=== PATIENT | female | born 1990 | race Caucasian/White ===

== ENCOUNTER 2016-09-01 16:48 | Outpatient (CLI) | payer OTHER | END 2016-09-01 21:55 | disposition home or self-care (01) | DX: O09.33 Supervision of pregnancy with insufficient antenatal care, third trimester (principal); O99.89 Other specified diseases and conditions complicating pregnancy, childbirth and the puerperium; R10.2 Pelvic and perineal pain; O99.213 Obesity complicating pregnancy, third trimester; E66.9 Obesity, unspecified; Z68.34 Body mass index [BMI] 34.0-34.9, adult ==

== ENCOUNTER 2016-09-13 13:44 | Outpatient (CLI) | payer OTHER | END 2016-09-13 17:30 | disposition home or self-care (01) | DX: O47.1 False labor at or after 37 completed weeks of gestation (principal); Z3A.38 38 weeks gestation of pregnancy ==

== ENCOUNTER 2016-09-17 05:27 | Outpatient (CLI) | payer OTHER ==
[2016-09-17 07:20] VITALS: BP 112/56
--- NOTE | 2016-09-17 07:47 | HISTORY & PHYSICAL EXAMINATION ---
DATE OF ADMISSION: 09/17/2016 DIAGNOSES 1. Gross ruptured membranes. 2. Late care. 3. Dating by late ultrasound at 38 weeks 5 days. HISTORY OF PRESENT ILLNESS: The patient is a 26-year-old 3, para 2-0-0-3, woman who reports rupture of membranes with clear fluid at 0515 hours this morning. She was confused as to where to report for hospitalization and presented at [facility]. She has been seen in the past here at [facility] once by myself, reference dictation from 09/[address] Patel on one occasion. Additionally, she had seen Dr. Miles at the [facility]. She has no fevers, chills , or symptoms of PIH. Her dating is based on ultrasound from 09/01. PAST MEDICAL HISTORY: No chronic disease history, hospitalizations, or surgery. ALLERGIES: NO KNOWN DRUG ALLERGIES. MEDICATIONS: vitamins. PHYSICAL EXAMINATION GENERAL: Well groomed, pleasant, obese. ABDOMEN: No marked tenderness. VAGINA: Gross ruptured membranes (SCOOTER Aguero). CERVIX: 1 cm thick, 60%, -2 station (SCOOTER Aguero). EXTERNAL MONITOR: Baseline 140 with moderate variability, no significant decelerations. Contractions every 3-4 minutes, palpate mild. ASSESSMENT: The patient is a woman who has had late care and uncertain dating due to achieving on Depo-Provera. By late ultrasound, she is 38 + weeks. She is in the latent phase of labor with ruptured membranes. Currently , there are no concerns about well being. She mistakenly came to [facility] for delivery without prior authorization through her [facility] insurance coverage. When she realized the financial consequences, she strongly desired discharge to access the [facility] facility. PLAN: I explained the risks and benefits of transfer of care, inclusive of degradation of state and poor outcome during transport. The main advantage was primarily financial and convenience. The patient does not want to proceed by an ambulance because of associated charges. Travel by POV seems reasonable and they understand the need to drive directly to the [facility] birthing center. Though the tracing indicates no problems at the current time, there is no guarantee that things could degrade during transportation and that possibility was made clear. AMA form was completed. JOB #: [id number] EXT JOB #:[id number] ILA
== END 2016-09-17 06:30 | disposition left against medical advice (07) ==
LOC: WFO 05:27 → OB 05:28 → WFO 06:30
PROVIDERS: ATTEND Obstetrics & Gynecology
DX: O09.33 Supervision of pregnancy with insufficient antenatal care, third trimester (principal); Z3A.38 38 weeks gestation of pregnancy; Z53.29 Procedure and treatment not carried out because of patient's decision for other reasons; O99.213 Obesity complicating pregnancy, third trimester; E66.9 Obesity, unspecified
CPT/HCPCS: 99213

== ENCOUNTER 2017-02-08 09:06 | Emergency (ER) | payer OTHER ==
[2017-02-08] MEDS ORDERED: DEXAMETHASONE 10 MG/ML VIAL PO STA (11:14)
[2017-02-08] MEDS ORDERED: DEXAMETHASONE 10 MG/ML VIAL ONE (11:20)
[2017-02-08 11:41] LABS: RAPID STREP SCREEN REAGENT QC YELLOW (YELLOW)
--- NOTE | 2017-02-08 11:46 | ED Physician Documentation ---
PD HPI HEENT - Stated complaint Stated Complaint: FEVER - Chief complaint Chief Complaint: Heent - History obtained from History obtained from: Patient - History of Present Illness Timing - onset: How many days ago (2) Timing - duration: Days (2) Timing - details: Gradual onset, Still present Location: Left ear, Sinuses, Throat Improves: Medication Worsens: Swalllowing Associated symptoms: Congestion, Rhinorrhea, Headache, Cough Similar symptoms before: Diagnosis (OM) Recently seen: Not recently seen Review of Systems Constitutional: denies: Fever Eyes: denies: Decreased vision Ears: reports: Ear pain Nose: reports: Rhinorrhea / runny nose, Congestion Throat: reports: Sore throat Cardiac: denies: Chest pain / pressure, Palpitations Respiratory: reports: Dyspnea, Cough GI: denies: Vomiting PD PAST MEDICAL HISTORY - Past Medical History Past Medical History: No - Past Surgical History Past Surgical History: No - Present Medications Home Medications: Ambulatory Orders Medication Instructions Recorded Confirmed Albuterol Sulf [Ventolin Hfa 1 - 2 puffs INH Q4HR PRN #1 inhaler 02/08/17 Inhaler] Azithromycin [Zithromax] 250 mg PO DAILY #6 tablet 02/08/17 - Allergies Allergies/Adverse Reactions: Allergies Allergy/AdvReac Type Severity Reaction Status Date / Time No Known Drug Allergies Allergy Verified 03/27/16 10:11 - Social History Does the pt smoke?: No Smoking Status: Never smoker Does the pt drink ETOH?: No PD ED PE NORMAL - Vitals Vital signs reviewed: Yes (normal ) - General General: No acute distress, Well developed/nourished - HEENT HEENT: Atraumatic, PERRL, EOMI, Other (Left TM is inflamed. ) - Neck Neck: Supple, no meningeal sign, No bony TTP, Other (shoddy adenopathy bilaterally) - Cardiac Cardiac: RRR, No murmur - Respiratory Respiratory: No respiratory distress, Other (diminished breath sounds with faint wheeze) - Abdomen Abdomen: Soft, Non tender - Back Back: No CVA TTP, No spinal TTP - Derm Derm: Normal color, Warm and dry, No rash - Extremities Extremities: No deformity, No edema - Neuro Neuro: No motor deficit, No sensory deficit - Psych Psych: Normal mood, Normal affect Results - Vitals Vitals: Vital Signs - 24 hr 10/09/17 09:23 Temperature 36.4 C L Heart Rate 94 Respiratory 16 Rate O2 Saturation 100 Oxygen O2 Source Room air - Labs Labs: Laboratory Tests 02/08/17 11:13 Group A Strep Rapid Negative PD MEDICAL DECISION MAKING - ED course Complexity details: considered differential, d/w patient ED course: 26 y/o female with OM is given decadron Departure - Departure Disposition: 01 Home, Self Care Clinical Impression: Otitis media Qualifiers: Otitis media type: suppurative Chronicity: acute Laterality: left Recurrence: not specified as recurrent Spontaneous tympanic membrane rupture: without spontaneous rupture Qualified Code(s): H66.002 - Acute suppurative otitis media without spontaneous rupture of ear drum, left ear Condition: Stable Instructions: ED Otitis Media Acute Adult Follow-Up: LETY Schofield [Provider Group] Prescriptions: Albuterol Sulf [Ventolin Hfa Inhaler] 1 - 2 puffs INH Q4HR PRN #1 inhaler PRN Reason: Shortness Of Air/Wheezing Azithromycin [Zithromax] 250 mg PO DAILY #6 tablet Forms: Activity restrictions Discharge Date/Time: 02/08/17 11:50
== END 2017-02-08 11:50 | disposition home or self-care (01) ==
LOC: ED 09:06
DX: H66.002 Acute suppurative otitis media without spontaneous rupture of ear drum, left ear (principal)
CPT/HCPCS: 87070; 87430; 99283

== ENCOUNTER 2018-08-30 12:04 | Emergency (ER) | payer OTHER ==
[2018-08-30 12:35] VITALS: BP 152/85
[2018-08-30] MEDS ORDERED: KETOROLAC 30 MG/ML VIAL IM STA (12:37)
[2018-08-30] MEDS ORDERED: METHOCARBAMOL 500 MG TABLET PO STA (12:37)
[2018-08-30] MEDS ORDERED: TRIAMCINOLONE 40 MG/ML VIAL IM STA (12:37)
[2018-08-30] MEDS ORDERED: oxyCODONE 5 MG TABLET PO STA (12:37)
[2018-08-30] MEDS ORDERED: BUPIVACAINE 0.5%-EPI 1:200000 PF 10 ML VIAL SUBQ STA (12:37)
--- NOTE | 2018-08-30 12:58 | ED Physician Documentation ---
PD HPI BACK INJURY - Stated complaint Stated Complaint: BACK PAIN - History obtained from History obtained from: Patient - History of Present Illness Location: Left, Lower Type of injury: Twist (She had jumped up onto a counter at home pushing up with her hands and twisting her buttocks onto the counter in order to reach a higher cabinet. As she did it she felt onset of pain both with the twisting and with the landing on the counter. She is continue with pain in the left lower back with some shooting of pain to the left buttock and lateral thigh. She did not have any numbness or weakness in the lower leg. She denies any bladder incontinence. She has had some pains in the low back there episodically for a couple of days at a time but nothing of this duration or severity.) Where injury occurred: Home Timing - onset: How many weeks ago (2) Timing - duration: Weeks (2) Timing - details: Abrupt onset, Still present, Waxing and waning Quality: Pain, Spasm Improved by: Rest, Meds (tried ibuprofen and icy-hot, massage and stretching without consistent improvement.) Worsened by: Moving, Palpating Associated symptoms: No: Fever, Weakness, Numbness, Incontinent of urine Contributing factors: No: Work related Similar symptoms before: No diagnosis (similar back pains with lifting or such in the past, but usually just for a day or two.) Recently seen: Not recently seen Review of Systems Constitutional: denies: Fever, Myalgias GI: denies: Abdominal Pain : denies: Incontinent Skin: denies: Rash, Lesions Neurologic: denies: Focal weakness, Numbness PD PAST MEDICAL HISTORY - Past Medical History Cardiovascular: None Respiratory: None Neuro: None Endocrine/Autoimmune: None - Past Surgical History Past Surgical History: No - Present Medications Home Medications: Ambulatory Orders Medication Instructions Recorded Confirmed Albuterol Sulf [Ventolin Hfa 1 - 2 puffs INH Q4HR PRN #1 inhaler 02/08/17 Inhaler] Azithromycin [Zithromax] 250 mg PO DAILY #6 tablet 02/08/17 Dexamethasone [Decadron] 4 mg PO DAILY #5 tablet 08/30/18 Methocarbamol [Robaxin] 500 mg PO Q6H PRN #30 tablet 08/30/18 Oxycodone HCl/Acetaminophen 1 - 2 each PO Q6H PRN #20 tablet 08/30/18 [Percocet 5-325 mg Tablet] - Allergies Allergies/Adverse Reactions: Allergies Allergy/AdvReac Type Severity Reaction Status Date / Time No Known Drug Allergies Allergy Verified 08/30/18 12:35 - Social History Does the pt smoke?: No Smoking Status: Never smoker Does the pt drink ETOH?: No PD ED PE NORMAL - Vitals Vital signs reviewed: Yes - General General: Alert and oriented X 3, No acute distress, Well developed/nourished - Cardiac Cardiac: RRR, No murmur - Respiratory Respiratory: Clear bilaterally - Abdomen Abdomen: Soft, Non tender - Back Back: No CVA TTP, No spinal TTP (tender left lower lumbar area at upper SI and iliac crest. No rash nor sores. Has a focal tender area in which I did a trigger injection iwth Marcaine and Kenalog. ) - Derm Derm: Normal color, Warm and dry, No rash - Neuro Neuro: Alert and oriented X 3, No motor deficit, No sensory deficit Results - Vitals Vitals: Vital Signs - 24 hr 08/30/18 12:27 Temperature 36.6 C Heart Rate 73 Respiratory 18 Rate Blood Pressure 152/85 H O2 Saturation 98 Oxygen O2 Source Room air PD MEDICAL DECISION MAKING - ED course Complexity details: considered differential, d/w patient Departure - Departure Disposition: 01 Home, Self Care Clinical Impression: Acute lumbar myofascial strain Qualifiers: Encounter type: initial encounter Qualified Code(s): S39.012A - Strain of muscle, fascia and tendon of lower back, initial encounter Condition: Stable Record reviewed to determine appropriate education?: Yes Instructions: ED Sprain Strain Lumbar Prescriptions: Dexamethasone [Decadron] 4 mg PO DAILY #5 tablet Methocarbamol [Robaxin] 500 mg PO Q6H PRN #30 tablet PRN Reason: Spasms Oxycodone HCl/Acetaminophen [Percocet 5-325 mg Tablet] 1 - 2 each PO Q6H PRN #20 tablet PRN Reason: pain Comments: Continue local massage and heat and stretching. Continue the ibuprofen 2-3 times a day. Add Decadron steroid for added anti-inflammatory effect and Robaxin for muscle spasms and stiffness. To that add Tylenol or oxycodone as needed for pain. Recheck if still not improved over the next several days or so.
== END 2018-08-30 13:04 | disposition home or self-care (01) ==
LOC: ED 12:04
DX: S39.012A Strain of muscle, fascia and tendon of lower back, initial encounter (principal); X50.1XXA Overexertion from prolonged static or awkward postures, initial encounter; Y93.89 Activity, other specified; Y92.009 Unspecified place in unspecified non-institutional (private) residence as the place of occurrence of the external cause
CPT/HCPCS: 20552; 96372; 99283; A9270

== ENCOUNTER 2019-04-19 10:55 | Inpatient (IN) | payer OTHER ==
[2019-04-19] MEDS ORDERED: AMPICILLIN 2 GM in SODIUM CHLORIDE 0.9% MINIBAG 100 ML IV ONE (11:27)
[2019-04-19] MEDS ORDERED: SODIUM CHLORIDE FLUSH 0.9% 10 ML SYRINGE IVP PRN (11:27)
[2019-04-19] MEDS: LACTATED RINGERS 1,000 ML IV SCH ×2 (12:00→18:41)
[2019-04-19 12:27] LABS: BASOPHILS % (AUTO) 0.3 %; EOSINOPHILS % (AUTO) 0.1 %; HGB - HEMOGLOBIN 9.5 g/dL (12.0-16.0); LYMPHOCYTES # (AUTO) 1.1 10^3/uL (1.5-3.5); LYMPHOCYTES % (AUTO) 10.7 %; MEAN CORPUSCULAR HEMOGLOBIN 26.9 pg (27.0-31.0); MEAN CORPUSCULAR HGB CONC 31.4 g/dL (32.0-36.0); MEAN CORPUSCULAR VOLUME 85.8 fL (81.0-99.0); MEAN PLATELET VOLUME 11.5 fL (7.9-10.8); MONOCYTES # (AUTO) 0.4 10^3/uL (0.0-1.0); MONOCYTES % (AUTO) 3.5 %; NEUTROPHILS # (AUTO) 8.7 10^3/uL (1.5-6.6); NEUTROPHILS % (AUTO) 85.1 %; PLT - PLATELET COUNT 205 10^3/uL (130-450); RED BLOOD COUNT 3.53 10^6/uL (4.20-5.40); RED CELL DISTRIBUTION WIDTH 13.5 % (12.0-15.0); WHITE BLOOD COUNT 10.2 x10^3/uL (4.8-10.8)
--- NOTE | 2019-04-19 12:48 | HISTORY & PHYSICAL EXAMINATION ---
Admit History - Visit Reason Visit Reason: Contractions - : 4 Parity: 4 Premature: 0 Ectopic: 0 : 0 Care: positive: [facility] Risk/History: positive: None Complications This : positive: None Smoking Status: Never smoker - Mother's Labs Mother's Blood Type: positive: B Mother's RH: positive: Positive GBS: positive: Group B Strep Positive Rubella Status: positive: Immune Meds/Allgy - Home Medications Home Medications: Ambulatory Orders Medication Instructions Recorded Confirmed Albuterol Sulf [Ventolin Hfa 1 - 2 puffs INH Q4HR PRN #1 inhaler 02/08/17 Inhaler] Azithromycin [Zithromax] 250 mg PO DAILY #6 tablet 02/08/17 Methocarbamol [Robaxin] 500 mg PO Q6H PRN #30 tablet 08/30/18 Oxycodone HCl/Acetaminophen 1 - 2 each PO Q6H PRN #20 tablet 08/30/18 [Percocet 5-325 mg Tablet] dexAMETHasone [Decadron] 4 mg PO DAILY #5 tablet 08/30/18 - Allergies Allergies/Adverse Reactions: Allergies Allergy/AdvReac Type Severity Reaction Status Date / Time No Known Drug Allergies Allergy Verified 08/30/18 12:35 Review of Systems - Constitutional Constitutional: denies: Fatigue, Fever, Chills, Malaise - Eyes Eyes: denies: Blurred vision, Spots in vision, Dipolpia - Cardiovascular Cariovascular: denies: Irregular heart rate, Palpitations, Chest pain, Edema - Respiratory Respiratory: denies: SOB at rest - Gastrointestinal Gastrointestinal: denies: Abdominal pain, Change in bowel habits - Integumentary Integumentary: denies: Rash, Pruritis - Neurological Neurological: denies: Headache Physical - Abdominal Exam Vital Signs: Temp Pulse Resp BP Pulse Ox 36.7 C 70 18 126/60 100 04/19/19 11:12 04/19/19 11:12 04/19/19 11:12 04/19/19 11:12 04/19/19 11:12 Contraction Frequency (min/apart): 3-5 Contraction Intensity: positive: Strong Uterine Resting Tone: positive: Soft - Monitoring Heart Rate Baseline: 135 Strip Review: positive: Category I - Presentation Presentation: positive: Vertex - Vaginal Exam Membranes: positive: Membranes intact Dilation (in cm): 5 Effacement (%): 90 Station: positive: -1 - Speculum Exam Speculum Exam Performed: positive: No Plan for Labor - Plan For Labor I expect patient to be DC'd or transferred within 96 hours.: Yes Plan for Labor: HPI: Ama is a 28yo @ 40.0wks gestation by 18.0wk ultrasound. She presented to [facility] 04/19/2019 @ 1118 with complaints of contractions. She reports contractions began to increase in frequency and intensity early this morning around 0300. She reports losing her mucus plug this morning which was pink tinged with red streaks of blood but otherwise denies vaginal bleeding. She denies leakage of fluid and reports +FM. She has been a patient of [facility] since 37wks gestation at which time she transferred care from [facility] where she did receive regular care through the duration of her , although she was late to seek care at 18wks gestation. Her has been complicated only by anemia for which she has been taking FeSO4 consistently. She is also noted to be positive for Group B strep. She was admitted to [facility] for management. 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 3VC. Posterior, fundal placenta, no previa. Mildy decreased HC/AC ratio. Correlate clinically to exclude maternal diabetes 12/06/2018 f/u WNL Physical Exam: Normocephalic, atraumatic Heart RRR w/o M/G/R Lungs CTAB Abdomen gravid, soft, nontender EFW 3400g SVE 5/90/-1, vertex. Membranes intact with bulging BOW Contractions palpate strong every 3-5 minutes with soft resting tone FHR baseline 135, moderate variability, + accels, no decels Bilateral LE's no edema Mood is good although very uncomfortable supportive at the bedside Assessment: 28yo @ 40.0wks gestation by 18.0wk U/S Active labor GBS positive Plan: Admit for expectant management Initiate Ampicillin for GBS prophylaxis per protocol Anesthesia operations scheduler notified of pt request for epidural for pain management. Plan AROM with second dose of antibiotics. Anticipate . Pt, partner, and labor RN verbalized understanding and agree with above plan. They deny further questions or concerns at this time.
--- NOTE | 2019-04-19 12:51 | ANESTHESIA ---
Pre-Anesthesia VS, & Labs - Diagnosis active labor - Procedure vaginal delivery Vital Signs: Temp Pulse Resp BP Pulse Ox 36.7 C 70 18 126/60 100 04/19/19 11:12 04/19/19 11:12 04/19/19 11:12 04/19/19 11:12 04/19/19 11:12 Height 5 ft 3 in Weight (kg) 101.605 kg Body Mass Index 30.9 - NPO Last Fluid Intake: clear liquids - Is Patient ?: Yes - Lab Results Current Lab Results: Laboratory Tests 04/19/19 12:10: WBC 10.2, RBC 3.53 L, Hgb 9.5 L, Hct 30.3 L, MCV 85.8, MCH 26.9 L, MCHC 31.4 L, RDW 13.5, Plt Count 205, MPV 11.5 H, Neut # (Auto) 8.7 H, Lymph # (Auto) 1.1 L, [place] # (Auto) 0.4, Eos # (Auto) 0.0, Baso # (Auto) 0.0, Absolute Nucleated RBC 0.00, Nucleated RBC % 0.0 Fish Bones: 04/19/19 12:10 Home Medications and Allergies Active Medications Ampicillin Sodium 1 gm/ Sodium (Chloride) 100 mls @ 200 mls/hr IV Q4H [facility] Lactated Ringer's (Lr) 1,000 mls @ 150 mls/hr IV .Q6H40M [facility] Last Admin: 04/19/19 12:00 Dose: 150 mls/hr Sodium Chloride (Normal Saline Flush 0.9%) 10 ml IVP PRN PRN PRN Reason: NEEDED PER PROVIDER ORDERS Sodium Chloride (Normal Saline Flush 0.9%) 10 ml IVP 0100,0900,1700 [facility] Allergies/Adverse Reactions: Allergies Allergy/AdvReac Type Severity Reaction Status Date / Time No Known Drug Allergies Allergy Verified 08/30/18 12:35 Anes History & Medical History - Anesthetic History Family history of Anesthesia Complications: Denies Family history of Malignant Hyperthermia: Denies - Medical History Cardiovascular: reports: None Pulmonary: reports: None Gastrointestinal: reports: GERD (during ) Urinary: reports: None Neuro: reports: None Musculoskeletal: reports: None Endocrine/Autoimmune: reports: None Blood Disorders: reports: None Skin: reports: None Smoking Status: Never smoker Psychosocial: reports: No issues indicated - Obstetrical History : 4 Parity: 4 Events: positive: None Complications: positive: None Exam General: Alert, Oriented x3, Cooperative, No acute distress Dental: WNL Mouth Openin Fingerbreadth Neck Mobility: Normal Mallampati classification: I Thyromental Distance: greater than 6 cm Plan Anesthesia Type: Epidural Consent for Procedure(s) Verified and Reviewed: Yes Code Status: Attempt Resuscitation ASA classification: 2-Mild systemic disease Is this case an emergency?: No
[2019-04-19] MEDS ORDERED: NALOXONE 0.4 MG/ML VIAL IVP PRN (12:52)
[2019-04-19] MEDS ORDERED: ONDANSETRON 4 MG/2 ML VIAL IVP PRN (12:52)
[2019-04-19] MEDS ORDERED: NALBUPHINE 10 MG/ML AMP IVP PRN (12:52)
[2019-04-19] MEDS ORDERED: ROPIVACAINE 0.2% 200 MG/100 ML BAG EP PRN (12:52)
[2019-04-19] MEDS ORDERED: ePHEDrine 50 MG/ML VIAL IVP PRN (12:52)
[2019-04-19] MEDS ORDERED: LACTATED RINGERS 500 ML IV ONE (12:52)
[2019-04-19] MEDS ORDERED: OXYTOCIN/DEXTROSE 5 % 30 UNIT/500 ML BAG IV ONE (15:49)
[2019-04-19] MEDS ORDERED: LIDOCAINE-MPF 1% 30 ML VIAL ONE (15:49)
[2019-04-19] MEDS ORDERED: miSOPROStoL 200 MCG TABLET ONE (15:49)
[2019-04-19] MEDS: OXYTOCIN/DEXTROSE 5 % 30 UNIT/500 ML BAG IV PRN ×2 (16:10→17:38)
[2019-04-19] MEDS ORDERED: HYDROCORTISONE 1% CREAM 28 GM TUBE PR PRN (16:19)
[2019-04-19] MEDS ORDERED: WITCH HAZEL/GLYCERIN 1 PAD TOP PRN (16:19)
--- NOTE | 2019-04-19 16:29 | DELIVERY NOTE ---
Delivery Note - Labor Labor: positive: Spontaneous - Delivery Method Delivery Method: positive: Spontaneous vaginal delivery - Presentation Presentation: positive: Vertex, RUI - right occiput anterior - Nuchal Cord Nuchal Cord: positive: None - Amniotic Fluid Description Amniotic Fluid Description: positive: Clear - Episiotomy Type Episiotomy Type: positive: None - Laceration Laceration: positive: None - Delivery Outcome Delivery Outcome: positive: Livebirth - Nettie : positive: Placed in direct skin contact with mother, Bulb syringe, Stimulated, Warmed, [place] used Nettie sex: positive: Male - Cord Cord: positive: 3 vessels - Placenta Placenta: positive: Intact, Spontaneous - Estimated Blood Loss Estimated Blood Loss (in cc): 250 - Post Delivery Events Post Delivery Events: positive: No post delivery events - Delivery Comments (Free Text/Narrative) Delivery Comments (Free Text/Narrative): Labor: This 28yo @ 40.0wks gestation by 18wk ultrasound presented to [facility] on 04/19/2019 at approximately 1118. Upon arrival cervical was 5/90/-1, vertex with intact membranes and bulging BOW. FHR pattern demonstrated Category I throughout labor.She was noted to be GBS positive and received 2g Ampicillin x 1 for GBS prophylaxis and delivery occurred 4 hours after initiation of medication for adequate prophylaxis. Epidural placed per maternal request. SROM occurred at 1521 and was noted to be a moderate amount of clear fluid. Patient progressed to c/c/+2 at 1540 with onset of active pushing at 1605. : She progressed to spontaneously deliver a viable male on 04/19/2019 at 1609. No nuchal cord. Apgars were 7/8 at 1 and 5 min respectively. The umbilical cord was allowed to stop pulsating at which time it was doubly clamped by CNM and cut by FOB. Pitocin administered via IV for hemostasis. Cord blood was obtained. Placenta delivered spontaneously and intact at 1613. 3VC. EBL 250mL. Fourth stage: Uterine fundus firm and there is no excessive bleeding. The perineum, vagina, and cervix were inspected and found to be intact. Skin to skin contact initiated and family bonding well. Both mother and baby were left in st able condition.
[2019-04-19] MEDS: ACETAMINOPHEN 500 MG TABLET PO SCH (17:35)
[2019-04-19] MEDS: SODIUM CHLORIDE FLUSH 0.9% 10 ML SYRINGE IVP SCH (17:56)
[2019-04-19] MEDS: IBUPROFEN 800 MG TABLET PO SCH ×2 (18:12→23:53)
[2019-04-19] MEDS: AMPICILLIN 1 GM in SODIUM CHLORIDE 0.9% MINIBAG 100 ML IV SCH (18:53)
[2019-04-19] MEDS: DOCUSATE SODIUM 100 MG CAPSULE PO SCH (20:23)
[2019-04-19] MEDS ORDERED: HYDROcod/ACETAM 5/325 MG TABLET PO ONE (21:12)
[2019-04-20] MEDS: ACETAMINOPHEN 500 MG TABLET PO SCH ×2 (03:45→12:01)
[2019-04-20] MEDS: IBUPROFEN 800 MG TABLET PO SCH ×2 (06:21→12:29)
--- NOTE | 2019-04-20 07:54 | Discharge Plan ---
Discharge Plan Problem Reviewed?: Yes Disposition: Home, Self Care Condition: Good Diet: Regular Activity Restrictions: No Restrictions Shower Restrictions: No Driving Restrictions: No Weight Bearing: Full Weight No Smoking: If you smoke, Please STOP! Call for help. Follow-up with: Jes Perez CNM, ARNP [Provider Admit Priv/Credential] -
[2019-04-20] MEDS: SODIUM CHLORIDE FLUSH 0.9% 10 ML SYRINGE IVP SCH ×2 (07:56→12:02)
[2019-04-20] MEDS: LACTATED RINGERS 1,000 ML IV SCH ×3 (07:56→15:32)
--- NOTE | 2019-04-20 07:58 | PROVIDER PROGRESS NOTE ---
Subjective - Subjective Subjective: FINAL PROGRESS NOTE: S: Bonding well with baby. was going well but she has now been pumping and syringe feeding as baby has been gagging frequently and not very excited about latching well. She denies pain since early yesterday evening when she received [place] 5/325 x 1 dose. Pain has been well controlled since that time with ibuprofen and tylenol. She states her bleeding has decreased. She is really hoping to be discharged home today. O: Heart RRR w/o M/G/R, lungs CTAB, abdomen soft and nontender with fundus firm at U. Bilateral LE's no edema. A: 28yo -->P5 PPD#1 s/p TSVD of viable male perineum intact P: Reviewed pp self care and warning s/sx. Advised continuation of PNV while . Advised OTC ibuprofen and tylenol for pain management PRN. F/u in 1 week for support visit PRN and in 3 weeks for routine pp visi t. Pt verbalized understanding and agrees to above plan. She denies further questions or concerns at this time. Objective - Vital Signs/Intake & Output Vital Signs: Vital Signs x48h Temp Pulse Resp BP Pulse Ox 04/20/19 03:42 97.7 C H 73 16 98/79 98 04/20/19 00:13 36.8 C 57 L 14 110/48 L 99 Intake & Output: Intake & Output 04/17/19 04/18/19 04/19/19 04/20/19 23:59 23:59 23:59 23:59 Intake Total 2100 Output Total 1020 Balance 1080 - Lab Results Fish Bones: 04/19/19 12:10 Other Labs: Lab Results x24hrs 04/19/19 Range/Units 12:10 WBC 10.2 (4.8-10.8) x10^3/uL RBC 3.53 L (4.20-5.40) 10^6/uL Hgb 9.5 L (12.0-16.0) g/dL Hct 30.3 L (37.0-47.0) % MCV 85.8 (81.0-99.0) fL MCH 26.9 L (27.0-31.0) pg MCHC 31.4 L (32.0-36.0) g/dL RDW 13.5 (12.0-15.0) % Plt Count 205 (130-450) 10^3/uL MPV 11.5 H (7.9-10.8) fL Neut # (Auto) 8.7 H (1.5-6.6) 10^3/uL Lymph # (Auto) 1.1 L (1.5-3.5) 10^3/uL [place] # (Auto) 0.4 (0.0-1.0) 10^3/uL Eos # (Auto) 0.0 (0.0-0.7) 10^3/uL Baso # (Auto) 0.0 (0.0-0.1) 10^3/uL Absolute Nucleated RBC 0.00 x10^3/uL Nucleated RBC % 0.0 /100WBC
--- NOTE | 2019-04-20 09:05 | DISCHARGE SUMMARY ---
Physician: GLADIS Moya DATE OF ADMISSION: 04/19/2019 DATE OF DISCHARGE: 04/20/2019 DIAGNOSES ON ADMISSION 1. A 28-year-old G4, P4-0-0-4 at 40.0 weeks' gestation. 2. Active labor. 3. Group B streptococcus positive. DIAGNOSES ON DISCHARGE 1. A 28-year-old G4 P. HISTORY OF PRESENT ILLNESS: She is a patient of [facility] who presented on 019 at approximately 11:18. Upon arrival, her cervix was 5 cm dilated, 90% effaced, -1 position, -1 station, vertex position with intact membranes and bulging bag of devine. She was noted to be GBS po sitive and received 2 grams of ampicillin for adequate GBS prophylaxis. She progressed to spontaneou sly deliver a viable male on 04/19/2019 at 1609. Apgars were 7 and 8 at 1 and 5 minutes respe ctively. EBL 250 mL. The patient was known to have an intact perineum after delivery. She has been doing well in her course. She is ambulating and tolerating a regular diet. She is urinating without difficulty and her lochia is normal. Her pain is well controlled with oral medications. She will be discharged home today on day #1 with instructions to continue he r vitamin while , and to continue ibuprofen and Tylenol [id number] as nee ded for pain management. She intends to follow up with myself at [facility] in 3 we eks for routine visit or sooner if needed. She has been given precautions to call if she has any worsening fevers, chills, abdominal pain, increased bleeding or foul-smelling vaginal lochia. TD: 04/20/2019 08:03
[2019-04-20] MEDS: DOCUSATE SODIUM 100 MG CAPSULE PO SCH (12:01)
[2019-04-20 16:52] VITALS: BP 116/62
--- NOTE | 2019-04-20 17:31 | Labor Flowsheet ---
Labor Flowsheet Datetime Report Generated by CPN: 04/20/2019 17:31 Datetime: 04/20/2019 16:50 VITAL SIGNS NBP Sys/Janette/Mean (mmHg): 116 : 62 : 73 Pulse: 59 LaborFlag: Labor Datetime: 04/19/2019 17:39 SpO2 (%): 100 Datetime: 04/19/2019 16:13 STAGE 2 Stage 2 Comments: placenta Datetime: 04/19/2019 16:00 UTERINE ACTIVITY Monitor Mode: External Frequency (min): 2.5-3 Quality: Strong Duration (sec): 60-100 Pattern: Normal: <= 5 Contractions in 10 Minutes Resting Tone (Palpate): Relaxed ASSESSMENT A Monitor Mode: Telemetry FHR Baseline Rate : 140 Variability: Moderate 6-25 bpm Accelerations: None Decelerations: Variable Category: Category II Datetime: 04/19/2019 15:51 Patient Care Comments: vomitting Datetime: 04/19/2019 15:45 ASSESSMENT B Monitor Mode: Telemetry FHR Baseline Rate : 130 Variability: Moderate 6-25 bpm Accelerations: None Decelerations: None Category: Category I Datetime: 04/19/2019 15:40 Monitor Interventions for FHR: Ultrasound Adjusted VAGINAL EXAM Dilatation (cm): 10.0 Datetime: 04/19/2019 15:39 COMMUNICATION Communication: Provider at Bedside Provider Notified (Name): Darrr Datetime: 04/19/2019 15:30 Monitor Interventions for UA: [place] Adjusted Datetime: 04/19/2019 15:25 PATIENT CARE Patient Position/Activity: Left Extreme Datetime: 04/19/2019 15:21 Effacement (%): 90 Station: 0 Exam by: Chris Membrane Status: Ruptured Membranes Rupture Method: Spontaneous Amniotic Fluid Color: Clear Amniotic Fluid Amount: Small Membrane Comments: during exam Datetime: 04/19/2019 14:30 FHR Baseline Changes: No Baseline Change Datetime: 04/19/2019 14:18 I/O Interventions: Kim Cath Inserted Datetime: 04/19/2019 14:10 TEACHING Instructional Method: Verbal Plan of Care: Labor Labor/Induction: Labor Stages Pain Management: Comfort Measures Datetime: 04/19/2019 13:37 Anesthesia Level Check: T10- Umbilicus Datetime: 04/19/2019 13:30 Stage of : Labor Datetime: 04/19/2019 13:16 Epidural Procedure Other: Pump Started Datetime: 04/19/2019 13:10 Epidural Procedure: Test Dose Datetime: 04/19/2019 13:05 Contraction Comments: ctx Datetime: 04/19/2019 13:04 Anesthesia Comments: local Datetime: 04/19/2019 12:55 PROCEDURE TIME OUT Procedure Verify: Correct Patient Identity; Correct Side and Site are Marked; Accurate Procedure Co nsent Form; Agreement on Procedure to be Done; Correct Patient Position; Relevant Images and Results are Properly Labeled and Displayed; Addressed Need to Administer Antibiotics or Fluids for Irrigation ; Safety Precautions Based on Patient History or Medication Use ANESTHESIA Anesthesia Plans: Epidural Epidural Positioning: Sitting Datetime: 04/19/2019 12:43 Respirations: 20 Temperature (C): 36.8
== END 2019-04-20 17:30 | disposition home or self-care (01) | DRG 807 ==
LOC: WFO 10:55 → FBP 10:57 → WFO 11:26 → FBP 11:27
PROVIDERS: ADMIT Nurse Practitioner Obstetrics & Gynecology; ATTEND Nurse Practitioner Obstetrics & Gynecology
PROC: 10E0XZZ Delivery of Products of Conception, External Approach (ICD-10-PCS; principal; 2019-04-19)
DX: O99.824 Streptococcus B carrier state complicating childbirth (principal); Z37.0 Single live birth; O99.02 Anemia complicating childbirth; Z3A.40 40 weeks gestation of pregnancy; Z79.899 Other long term (current) drug therapy; Z87.891 Personal history of nicotine dependence
CPT/HCPCS: 36415; 85025; A9270; J7120; 99213

== ENCOUNTER 2021-03-14 16:43 | Emergency (ER) | payer OTHER ==
[2021-03-14 16:51] VITALS: BP 138/79
[2021-03-14] MEDS ORDERED: SUMAtriptan 6 MG/0.5 ML VIAL SUBQ STA (16:59)
[2021-03-14] MEDS ORDERED: KETOROLAC 60 MG/2 ML VIAL IM STA (16:59)
--- NOTE | 2021-03-14 17:02 | ED Physician Documentation ---
PD HPI HEADACHE - Stated complaint Stated Complaint: HEADACHE - Chief complaint Chief Complaint: Neuro - History obtained from History obtained from: Patient - Additional information Additional information: 30-year-old woman with history of migraines presents with with headache and neck pain and shoulder blade pain. 3 or 4 days ago she was accidentally hit between the shoulder blades at work. Subsequently she had no pain until the next day she woke up with shoulder blade stiffness which has subsequently radiated up into her occiput now has a global headache with sound sensitivity. She tried E xcedrin without relief. No fevers. Review of Systems Constitutional: reports: Reviewed and negative Eyes: reports: Reviewed and negative Ears: reports: Reviewed and negative Nose: reports: Reviewed and negative PD PAST MEDICAL HISTORY - Past Medical History Cardiovascular: None Respiratory: None Neuro: None Endocrine/Autoimmune: None GI: GERD (during ) : None Musculoskeletal: None Derm: None - Past Surgical History Past Surgical History: No - Present Medications Home Medications: Ambulatory Orders Medication Instructions Recorded Confirmed Albuterol Sulf [Ventolin Hfa 1 - 2 puffs INH Q4HR PRN #1 inhaler 02/08/17 Inhaler] Azithromycin [Zithromax] 250 mg PO DAILY #6 tablet 02/08/17 Oxycodone HCl/Acetaminophen 1 - 2 each PO Q6H PRN #20 tablet 08/30/18 [Percocet 5-325 mg Tablet] dexAMETHasone [Decadron] 4 mg PO DAILY #5 tablet 08/30/18 methocarbamoL [Robaxin] 500 mg PO Q6H PRN #30 tablet 08/30/18 - Allergies Allergies/Adverse Reactions: Allergies Allergy/AdvReac Type Severity Reaction Status Date / Time No Known Drug Allergies Allergy Verified 03/14/21 16:51 - Social History Does the pt smoke?: No Smoking Status: Never smoker Does the pt drink ETOH?: No PD ED PE NORMAL - Vitals Vital signs reviewed: Yes - General General: Alert and oriented X 3, No acute distress - HEENT HEENT: PERRL, EOMI - Neck Neck: Other (She has some muscular tenderness of the right low up paracervical musculature. No midline spinal tenderness. 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 Recommended IV medications including Reglan and Benadryl but she is driving and as such we came to the conclusion that we would trial some subcutaneous Imitrex and IM Toradol since she will still be able to drive after that and she will return with a charter driver if it is less than effective. Departure - Departure Disposition: 01 Home, Self Care Clinical Impression: Migraine Qualifiers: Migraine type: without aura Status migrainosus presence: with status migrainosus Intractability: not intractable Qualified Code(s): G43.001 - Migraine without aura, not intractable, with status migrainosus Condition: Good Record reviewed to determine appropriate education?: Yes Instructions: ED Headache Migraine Comments: You are seen today for muscular pain of the neck and probably a migraine as well. You received intramuscular Toradol, 60 mg and subcutaneous Imitrex, 6 mg. As we discussed, this is not my usual first-line routine medication for migraines but you can still drive after it. Go home and rest but if you worsen or fail to improve please return with a charter driver for reevaluation and potentially different medications.
== END 2021-03-14 17:33 | disposition home or self-care (01) ==
LOC: ED 16:43
DX: G43.001 Migraine without aura, not intractable, with status migrainosus (principal)
CPT/HCPCS: 96372; 99283

== ENCOUNTER 2021-04-09 20:21 | Emergency (ER) | payer OTHER | END 2021-04-09 20:30 | disposition left against medical advice (07) | LOC: ED 20:21 | DX: Z53.21 Procedure and treatment not carried out due to patient leaving prior to being seen by health care provider (principal) ==